=== PATIENT | female | born 1975 | race Hispanic/Latino ===

== ENCOUNTER → 2018-11-21 | Day surgery (SDC) | payer BC ==
[2018-11-15 15:34] LABS: BASOPHILS # (AUTO) 0.1 (0.0-0.1); BASOPHILS % 0.5 % (0.0-1.0); EOSINOPHILS # (AUTO) 0.2 (0.0-0.4); EOSINOPHILS % 1.8 % (0.0-6.0); HEMATOCRIT 39.7 % (34.2-44.1); HEMOGLOBIN 12.8 g/dL (12.0-16.0); LYMPHOCYTES # (AUTO) 2.8 (1.0-3.2); MEAN CORPUSCULAR HEMOGLOBIN 28.4 pg (28-32); MEAN CORPUSCULAR HGB CONC 32.2 g/dL (31-35); MEAN CORPUSCULAR VOLUME 88.2 fL (81-99); MONOCYTES # (AUTO) 0.8 (0.2-0.8); NEUTROPHILS # (AUTO) 6.1 (2.1-6.9); NEUTROPHILS % 60.9 % (38.7-80.0); PLATELET COUNT 300 x10e3/uL (140-360); RED CELL DISTRIBUTION WIDTH 13.1 % (11.7-14.4)
[~2018-11-21] MED LIST: ACETAMINOPHEN 1000 MG/100 ML IV ONE; ALBUTEROL0.63 MG/3 INH; BUPIVACAINE 0.25%/EPI 30ML SDV INJ ONE; DEXAMETHASONE SOD PHOS INJ 4 MG/ML VIAL ONE; ESCITALOPRAM OX10 MG PO; FENTANYL CITRATE/PF 100MCG/2 ML INJ ONE; HYDROXYZINE HCL25 MG PO; IODINE/POTASSIUM IODIDE 8 ML SOLUTION TP ONE; LIDOCAINE HCL 2% LOCAL INJ 5 ML SDV VIAL INJ ONE; MIDAZOLAM HCL 2 MG/2 ML VIAL ONE; ONDANSETRON HCL INJ 2MG/ML 2ML 2 MG/ML VIAL ONE; PHENTERMINE HCL15 MG PO; PROPOFOL IV EMULSION 10 MG/ML 20 ML VIAL ONE; SEVOFLURANE INHAL SOLN 250 ML PEN BTL ONE; SINGULAIR10 MG PO; TOPIRAMATE25 MG PO
[2018-11-21 14:40] VITALS: BP 126/80
--- NOTE | 2019-02-05 19:01 | Operative Report ---
DATE OF PROCEDURE: SURGEON: Yarelis Cash MD PREOPERATIVE DIAGNOSIS: MICHELLE 1. POSTOPERATIVE DIAGNOSIS: MICHELLE 1. PROCEDURE: Cone biopsy. COMPLICATIONS: None. ESTIMATED BLOOD LOSS: Minimal. PROCEDURE IN DETAIL: The patient was taken to the OR. General anesthesia was induced. She was prepped and draped in a sterile fashion and placed in a dorsal lithotomy position. After examination under anesthesia, a weighted speculum was placed inside the vagina and Lugol's iodine was placed on the cervix to show the Schiller's positive areas. Following this, Vicryl 0 sutures were placed at 3 and 9 o'clock on the cervix. Using the scalpel, cone biopsy was excised and the biopsy bed was ligated with interrupted [id number] Vicryl 0 sutures. Hemostasis was found to be adequate and Surgicel was inserted inside the biopsy bed to achieve hemostasis. The patient tolerated the procedure well. Lap, instrument, and needle counts correct x2 at the end of the procedure. Yarelis Cash MD DD/KYEL /[id number]
== END | disposition home or self-care (01) ==
LOC: OR 10:15
PROVIDERS: ATTEND Obstetrics & Gynecology
DX: N87.0 Mild cervical dysplasia (principal); M06.9 Rheumatoid arthritis, unspecified; J45.909 Unspecified asthma, uncomplicated; M79.10 Myalgia, unspecified site; F41.9 Anxiety disorder, unspecified; F32.9 Major depressive disorder, single episode, unspecified; Z01.812 Encounter for preprocedural laboratory examination
CPT/HCPCS: 36415; 57520; 81025; 85025; 88307; J0131; J1100; J2001; J2250; J2405; J2704; J3010; 88305